=== PATIENT | female | born 1970 | race Caucasian/White ===

== ENCOUNTER 2016-10-11 18:04 | Emergency (ER) | payer OTHER ==
[2016-10-11 18:13] VITALS: RESP 18; O2SAT 100
--- NOTE | 2016-10-11 19:25 | C.PDOC ---
History Of Present Illness 46 year old female presents to the emergency department with complaints of itching and erythema to the right thigh beginning today. Patient states she was stung by a bee one week ago and only had pain at the time of the bee sting. She has not taken medication and denies fever or other complaints at this time. Time Seen by Provider: 10/11/16 18:30 Chief Complaint (Nursing): Abnormal Skin Integrity History Per: Patient History/Exam Limitations: no limitations Onset/Duration Of Symptoms: Hrs Current Symptoms Are (Timing): Still Present Recent travel outside of the [place]: No Additional History Per: Family ( ) Past Medical History Reviewed: Historical Data, Nursing Documentation, Vital Signs Vital Signs: Last Vital Signs Temp 98.1 F 10/11/16 19:45 Pulse 78 10/11/16 19:45 Resp 18 10/11/16 19:45 BP 110/66 10/11/16 19:45 Pulse Ox 100 10/16/16 19:52 Family History: States: Other Other Family History: Non-contributory. - Social History Hx Alcohol Use: No Hx Substance Use: No - Immunization History Hx Tetanus Toxoid Vaccination: No Hx Influenza Vaccination: No Hx Pneumococcal Vaccination: No Review Of Systems Except As Marked, All Systems Reviewed And Found Negative. Skin: Positive for: Other (erythema and itching surrounding bee sting area on right thigh ) Physical Exam - Physical Exam Appears: Non-toxic, No Acute Distress Skin: Warm, Dry, Other (4cm by 10 cm area of erythema, warmth, and mild induration to the right proximal inner thigh. No fluctuance and no abscess. ) Head: Atraumatic Eye(s): bilateral: Normal Inspection, PERRL, EOMI Oral Mucosa: Moist Neck: Supple Chest: Symmetrical, No Deformity Cardiovascular: Rhythm Regular Respiratory: Normal Breath Sounds, No Rhonchi, No Wheezing Extremity: Normal ROM (full ROM of the right knee), Capillary Refill (good capillary refill, less than 2 seconds ) Neurological/Psych: Oriented x3, Normal Speech, Normal Sensation Gait: Steady ED Course And Treatment O2 Sat by Pulse Oximetry: 100 (room air ) Disposition - Disposition Referrals: [facility] [Outside] Disposition: HOME/ ROUTINE Disposition Time: 19:56 Condition: GOOD Additional Instructions: Please follow up with your doctor this week. Return to the ER for any worsening symptoms or for any other concerns. Prescriptions: DiphenhydrAMINE [Benadryl] 25 mg PO Q8H PRN #10 cap PRN Reason: Itching / Pruritus Doxycycline Hyclate [Doryx] 100 mg PO BID #14 cap Instructions: Cellulitis (ED) Forms: Gen Discharge Inst Lebanese, [facility] (Citizen Of [place]) Print Language: LATVIAN - Clinical Impression Clinical Impression: Cellulitis - Scribe Statement The provider has reviewed the documentation as recorded by the Jasminibmoriah Schmidt All medical record entries made by the Jasminibmoriah were at my direction and personally dictated by me. I have reviewed the chart and agree that the record accurately reflects my personal performance of the history, physical exam, medical decision making, and the department course for this patient. I have also personally directed, reviewed, and agree with the discharge instructions and disposition.
[2016-10-11 19:46] VITALS: BP 110/66; PULSE 78; TEMP 98.1
== END 2016-10-11 19:56 | disposition home or self-care (01) ==
LOC: C.ER 18:04
DX: L03.115 Cellulitis of right lower limb (principal)

== ENCOUNTER 2017-08-05 17:19 | Emergency (ER) | payer OTHER ==
[2017-08-05 17:22] VITALS: BP 111/77; PULSE 106; RESP 20; TEMP 98.1; O2SAT 97
--- NOTE | 2017-08-05 17:53 | C.PDOC ---
History Of Present Illness 47 year old female presents to the emergency department with an itchy rash that developed about 6 days ago to left elbow. Patient admits exposure to poison vesna while [place] prior to onset of current symptoms. Otherwise, pt denies fever, throat tightness or swelling, drooling, dysphagia, wheezing, CP, SOB, dyspnea, abd. pain, N/V, denies weakness, sensory or vascular deficits to Left arm. Ambulate to Ed for evaluation, not in any apparent distress. Time Seen by Provider: 08/05/17 17:34 Chief Complaint (Nursing): Abnormal Skin Integrity History Per: Patient History/Exam Limitations: no limitations Onset/Duration Of Symptoms: Days (6) Current Symptoms Are (Timing): Still Present Past Medical History Reviewed: Historical Data, Nursing Documentation, Vital Signs Vital Signs: Last Vital Signs Temp 98.1 F 08/05/17 17:20 Pulse 106 H 08/05/17 17:20 Resp 20 08/05/17 17:20 BP 111/77 08/05/17 17:20 Pulse Ox 97 08/05/17 19:03 - Medical History PMH: No Chronic Diseases Surgical History: No Surg Hx Family History: States: Unknown Family Hx - Social History Hx Alcohol Use: No Hx Substance Use: No - Immunization History Hx Tetanus Toxoid Vaccination: No Hx Influenza Vaccination: No Hx Pneumococcal Vaccination: No Review Of Systems Except As Marked, All Systems Reviewed And Found Negative. (As per HPI, otherwise negative\) Constitutional: Negative for: Fever ENT: Negative for: Other (throat tightness or swelling) Respiratory: Negative for: Wheezing, Other (dyspnea) Skin: Positive for: Rash (itchy). Negative for: Other (trauma or injury) Physical Exam - Physical Exam Appears: Well, Non-toxic, No Acute Distress Skin: Normal Color, Warm, Dry, Rash (vesicular/small bullae rash on erythematous base, scant oozing noted over inner aspect left elbow. No edema, no proximal streaking.) Eye(s): bilateral: PERRL Nose: No Flaring, No Discharge Oral Mucosa: Moist Tongue: No Swelling Lips: No Swelling Throat: No Erythema, No Exudate, No Drooling, Other (uvula midline, no edema.) Neck: Trachea Midline, Supple Cardiovascular: Rhythm Regular Respiratory: No Decreased Breath Sounds, No Accessory Muscle Use, No Stridor, No Wheezing Extremity: Normal ROM (Left elbow), No Tenderness, No Pedal Edema, No Deformity , No Swelling Neurological/Psych: Oriented x3, Normal Speech, Normal Motor, Normal Sensation, Normal Reflexes ED Course And Treatment O2 Sat by Pulse Oximetry: 97 (RA) Pulse Ox Interpretation: Normal Progress Note: On re-evaluation, pt is afebrile, hemodynamicaly stable. NOn- toxic. Tolerate po well in ED. PulsEOx 100% RA. ENT: no acute findings. uvul amidline, no edema. neck: SUpple, (-) JVD. Lungs: CTA B/L, BS equal B/L. Skin : exam c/w pruritic rash to inner aspect Left elbow, appears vesicular/small bullar c/w contact dermatitis r/o poison vesna. No evidence of superimposed infection. Neurologicaly intact. Pt advised on course of ds. Ref. to F/u with PMD in 2-3 days for re-eval. return to ED if any worsening or new changes. Medical Decision Making Medical Decision Making: Time: 1749 Benadryl 25 mg PO Pepcid 20 mg PO Prednisone 80 mg PO Revaluation Time: 1752 --Patient is medically clear and ready for discharge. Given Rx for Benadryl 25 mg, Pepcid 20 mg, and Deltasone 40 mg. Advised to follow up with Dr. Paige Selby MD. Clinical Impression: Poison Vesna Disposition Counseled Patient/Family Regarding: Studies Performed, Diagnosis, Need For Followup, Rx Given - Disposition Referrals: Paige Selby MD [Medical Doctor] - Disposition: HOME/ ROUTINE Disposition Time: 17:53 Condition: STABLE Additional Instructions: Stay away from Poison Vesna due to allergic reaction take medication as prescribed Keep covered rash due to possible spread Follow up with PMD in 2-3 days for re-evaluation. return to ED if any worsening or new changes. Prescriptions: DiphenhydrAMINE [Benadryl] 25 mg PO BID #10 cap Famotidine [Pepcid] 20 mg PO BID #10 tab Hydrocortisone 1% Cream [Cortizone 1% Cream] 1 appl TP BID #1 tube Prednisone [Deltasone] 40 mg PO DAILY #10 tablet Instructions: Poison Vesna Forms: [employer] (Ukrainian) Print Language: FAROESE - Clinical Impression Clinical Impression: Contact dermatitis due to poison vesna
== END 2017-08-05 18:23 | disposition home or self-care (01) ==
LOC: C.ER 17:19
DX: L23.7 Allergic contact dermatitis due to plants, except food (principal)

== ENCOUNTER 2018-03-31 13:44 | Emergency (ER) | payer OTHER ==
[2018-03-31 14:06] VITALS: BP 131/85; PULSE 91; RESP 20; TEMP 98.3; O2SAT 97
--- NOTE | 2018-03-31 15:37 | C.PDOC ---
History Of Present Illness 48 year old female presents to the ED for evaluation of a possible allergic reaction. Patient has been experiencing some cold symptoms and rubbed vicks vaporub on her nose and bilateral temples. Patient then noticed the area became red, swollen and itchy. She tried taking Benadryl at home without relief. Patient reports some nasal congestion. Otherwise, she denies mouth/throat swelling or respiratory distress. Time Seen by Provider: 03/31/18 14:21 Chief Complaint (Nursing): Allergic Reaction History Per: Patient History/Exam Limitations: no limitations Onset/Duration Of Symptoms: Hrs Current Symptoms Are (Timing): Still Present Possible Cause: Medication Home/EMS Treatment: Benadryl Additional History Per: Patient Past Medical History Reviewed: Historical Data, Nursing Documentation, Vital Signs Vital Signs: Last Vital Signs Temp 98.3 F 03/31/18 14:03 Pulse 91 H 03/31/18 14:03 Resp 20 03/31/18 14:03 BP 131/85 03/31/18 14:03 Pulse Ox 97 03/31/18 14:03 - Medical History PMH: Sickle Cell Disease Surgical History: No Surg Hx Family History: States: Unknown Family Hx - Social History Hx Alcohol Use: No Hx Substance Use: No - Immunization History Hx Tetanus Toxoid Vaccination: No Hx Influenza Vaccination: No Hx Pneumococcal Vaccination: No Review Of Systems ENT: Positive for: Nose Congestion. Negative for: Mouth Swelling, Throat Swelling Respiratory: Negative for: Wheezing Skin: Positive for: Other (redness, swelling and itchiness to nose and temples ) Physical Exam - Physical Exam Appears: Non-toxic, No Acute Distress Skin: Warm, Dry, Other (erythema to nose and cheeks, bilaterally ) Head: Atraumatic, Normacephalic Eye(s): bilateral: Normal Inspection Nose: Other (congestion ) Oral Mucosa: Moist Tongue: Normal Appearing, No Swelling Lips: Normal Appearing, No Swelling Throat: Normal, No Erythema, No Exudate, No Drooling Neck: Supple Chest: Symmetrical, No Deformity, No Tenderness Cardiovascular: Rhythm Regular, No Murmur Respiratory: Normal Breath Sounds, No Rales, No Rhonchi, No Wheezing Extremity: Normal ROM, Capillary Refill (less than 2 seconds ) Neurological/Psych: Oriented x3, Normal Speech, Normal Cognition ED Course And Treatment O2 Sat by Pulse Oximetry: 97 (on RA) Pulse Ox Interpretation: Normal Medical Decision Making Medical Decision Making: Patient advised to continue taking Benadryl and discontinue putting Vicks on face. Can use mild, unscented lotions on face, but avoid putting steroid cream on face. Return for any new or worsening symptoms. Patient with no respiratory symptoms or swelling of mucous membranes. Disposition - Disposition Disposition: HOME/ ROUTINE Disposition Time: 14:59 Condition: GOOD Additional Instructions: SHREI SIMPSON, thank you for letting us take care of you today. Your provider was Anjali Arreola MD and you were treated for ALLERGIC REACTION. The emergency medical care you received today was directed at your acute symptoms. If you were prescribed any medication, please fill it and take as directed. It may take several days for your symptoms to resolve. Return to the Emergency Department if your symptoms worsen, do not improve, or if you have any other problems. Please contact your doctor or call one of the physicians/clinics you have been referred to that are listed on the Patient Visit Information form that is included in your discharge packet. Bring any paperwork you were given at [facility] with you along with any medications you are taking to your follow up visit. Our treatment cannot replace ongoing medical care by a primary care provider outside of the emergency department. Thank you for allowing the [facility] team to be part of your care today. If you had an X-Ray or CT scan: A Radiologist will review the ED reading if any change in treatment is needed we will contact you. If you had a blood, urine, or wound culture: It will take several days for the results, if any change in treatment is needed we will contact you. If you had an STI test: It will take 48 hours for the results. Please call after 1 week if you have not heard back. Instructions: Contact Dermatitis (DC) Forms: Gen Discharge Inst Montenegrin, [employer] (Montenegrin) Print Language: MACEDONIAN - Clinical Impression Clinical Impression: Contact dermatitis - Scribe Statement The provider has reviewed the documentation as recorded by the Scribe (Inga Ayala) Provider Attestation: All medical record entries made by the Scribe were at my direction and personally dictated by me. I have reviewed the chart and agree that the record accurately reflects my personal performance of the history, physical exam, medical decision making, and the department course for this patient. I have also personally directed, reviewed, and agree with the discharge instructions and disposition.
== END 2018-03-31 14:59 | disposition home or self-care (01) ==
LOC: C.ER 13:44
DX: L25.9 Unspecified contact dermatitis, unspecified cause (principal)

== ENCOUNTER 2018-05-30 16:08 | Emergency (ER) | payer OTHER ==
[2018-05-30 16:45] VITALS: BMI 32.3
[2018-05-30 16:47] VITALS: BP 129/89; PULSE 93; RESP 18; TEMP 98.4; O2SAT 99
--- NOTE | 2018-05-30 16:59 | C.PDOC ---
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 Patient states that she accidentally sliced off tip while cutting cabbage. She denies any other injury. 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 ACCID SLICED OFF TIP WHILE CUTTING CABBAGE. CO BLEEDING TO AREA. NO OTHER INJ EXAM EXT R 5 FINGER SUPERFICIAL AVULSION TIP OF FINGER W MIN ACTIVE BLEEDING. SCANT LOSS DISTAL FINGERNAIL. PERIONYCHIUM SPARED. AROM WO DIFF NEURO INTACT Time Seen by Provider: 05/30/18 16:57 Chief Complaint (Nursing): Abnormal Skin Integrity History Per: Patient History/Exam Limitations: no limitations Onset/Duration Of Symptoms: Hrs Current Symptoms Are (Timing): Still Present Location Of Injury: Right: Hand Recent travel outside of the [place]: No Additional History Per: Patient Past Medical History Reviewed: Historical Data, Nursing Documentation, Vital Signs Vital Signs: Last Vital Signs Temp 98.4 F 05/30/18 16:41 Pulse 93 H 05/30/18 16:41 Resp 18 05/30/18 16:41 BP 129/89 05/30/18 16:41 Pulse Ox 99 05/30/18 16:41 - Medical History PMH: No Chronic Diseases, Sickle Cell Disease Surgical History: No Surg Hx Family History: States: Unknown Family Hx - Social History Hx Alcohol Use: No Hx Substance Use: No - Immunization History Hx Tetanus Toxoid Vaccination: No Hx Influenza Vaccination: No Hx Pneumococcal Vaccination: No Review Of Systems Except As Marked, All Systems Reviewed And Found Negative. Musculoskeletal: Positive for: Hand Pain (right 5 finger ) Physical Exam - Physical Exam Appears: Non-toxic, No Acute Distress Skin: Normal Color, Warm, Dry Head: Atraumatic, Normacephalic Neck: Supple Cardiovascular: Rhythm Regular Respiratory: Other (NARD) Extremity: Other (R 5 FINGER SUPERFICIAL AVULSION TIP OF FINGER W MIN ACTIVE BLEEDING. SCANT LOSS DISTAL FINGERNAIL. PERIONYCHIUM SPARED. AROM WO DIFF) Neurological/Psych: Oriented x3, Normal Speech, Normal Cognition, Normal Motor, Normal Sensation ED Course And Treatment O2 Sat by Pulse Oximetry: 99 (on RA) Pulse Ox Interpretation: Normal Progress Note: Plan: Motrin 600mg PO. Ultram 50mg PO. Tetanus Reevaluation Time: 17:56 Reassessment Condition: Improved (SP CONTINUOUS PRESSURE-NO ACTIVE BLEED. DRESSED) Disposition Counseled Patient/Family Regarding: Diagnosis, Need For Followup, Rx Given - Disposition Referrals: YOUR,PMD [Other] Disposition: HOME/ ROUTINE Disposition Time: 17:56 Condition: IMPROVED Instructions: Wound Care (DC) Forms: [facility] (Cambodian) Print Language: FAROESE - Clinical Impression Clinical Impression: Fingertip avulsion - Scribe Statement The provider has reviewed the documentation as recorded by the Augustine Hinojosa All medical record entries made by the Jasminibmoriah were at my direction and personally dictated by me. I have reviewed the chart and agree that the record accurately reflects my personal performance of the history, physical exam, medical decision making, and the department course for this patient. I have also personally directed, reviewed, and agree with the discharge instructions and disposition.
[2018-05-30] MEDS ORDERED: Tetanus/Diphtheria Toxoids 0.5 ml Syringe IM ONE ×2 (18:10→18:18)
== END 2018-05-30 18:22 | disposition home or self-care (01) ==
LOC: C.ER 16:08
DX: S61.206A Unspecified open wound of right little finger without damage to nail, initial encounter (principal); W45.8XXA Other foreign body or object entering through skin, initial encounter; Z23 Encounter for immunization